=== PATIENT | female | born 2000 | race Caucasian/White ===

== ENCOUNTER 2020-05-17 20:14 | Emergency (ER) | payer BC, OTHER ==
[2020-05-17] MEDS ORDERED: SILVADENE 50 GM TP ONE ×2 (20:26→20:36)
[2020-05-17 20:35] VITALS: O2SAT 100
--- NOTE | 2020-05-17 20:47 | ERPHSYRPT ---
- History of Present Illness Source: patient Exam Limitations: no limitations Patient Subjective Stated Complaint: pt states "I burnt myself at work yesterday with [employer]art grease." Triage Nursing Assessment: pt ambulated into the er; pt is axo x4; c/o burn to rt hand; states 8/10 pain to rt hand; burn measures 5 cm x 7 cm; 2nd degree burn preseent to rt hand; sloughing of skin on dorsal part of hand; area around red; good cap refill; strong radial pulses; good ROM to rt hand; tachycardic; Physician History: Is a healthy 20-year-old female who presents with burn on her right hand. It occurred yesterday at work while she was taking out a jain of [employer] and grease splashed on her right hand. Blistered up pretty quickly. Then 1 small area opened and started draining. Since then has been painful. Tetanus is up-to-date. Patient states she is currently . Timing/Duration: yesterday Quality: painful Severity: mild Location: hands Possible Causes: other (stewart grease) Associated Symptoms: blisters, change in skin texture Allergies/Adverse Reactions: No Known Drug Allergies Allergy (Verified 05/17/20 20:21) Hx Tetanus, Diphtheria Vaccination/Date Given: No Hx Influenza Vaccination/Date Given: No Hx Pneumococcal Vaccination/Date Given: No Travel Risk - International Travel Have you traveled outside of the country in past 3 weeks: No - Coronavirus Screening Are you exhibiting any of the following symptoms?: No Close contact with a COVID-19 positive Pt in past 14-21 Days: No - Review of Systems Constitutional: No Fever, No Chills Eyes: No Symptoms Ears, Nose, & Throat: No Symptoms Respiratory: No Cough, No Dyspnea Cardiac: No Chest Pain, No Edema, No Syncope Abdominal/Gastrointestinal: No Abdominal Pain, No Nausea, No Vomiting, No Diarrhea Genitourinary Symptoms: No Dysuria Musculoskeletal: No Back Pain, No Neck Pain Skin: Rash (Burn) Neurological: No Dizziness, No Focal Weakness, No Sensory Changes Psychological: No Symptoms Endocrine: No Symptoms All Other Systems: Reviewed and Negative - Past Medical History Pertinent Past Medical History: Yes Psycho-Social History: Anxiety, Depression Other Medical History: premature - Past Surgical History Past Surgical History: Yes Other Surgical History: t&a - Social History Smoking Status: Former smoker How long have you smoked: 2 Exposure to second hand smoke: Yes Drug Use: none Patient Lives Alone: No - Female History Hx Now: Yes - Nursing Vital Signs Nursing Vital Signs: Initial Vital Signs Temperature 98.6 F 05/17/20 20:23 Pulse Rate 119 H 05/17/20 20:23 Respiratory Rate 16 05/17/20 20:23 Blood Pressure 120/76 05/17/20 20:23 O2 Sat by Pulse Oximetry 100 05/17/20 20:23 Pain Scale Pain Intensity 8 - Physical Exam General Appearance: no apparent distress, alert Eye Exam: PERRL/EOMI, eyes nml inspection Ears, Nose, Throat Exam: normal ENT inspection, pharynx normal, moist mucous membranes Neck Exam: normal inspection, non-tender, supple, full range of motion Respiratory Exam: normal breath sounds, lungs clear, No respiratory distress Cardiovascular Exam: regular rate/rhythm, normal heart sounds Gastrointestinal/Abdomen Exam: soft, mass, No tenderness Back Exam: normal inspection, normal range of motion, No CVA tenderness, No vertebral tenderness Extremity Exam: normal inspection, normal range of motion (Of right hand.) Neurologic Exam: alert, oriented x 3, cooperative, normal mood/affect, sensation nml, No motor deficits Skin Exam: normal color, warm, dry, other (Dorsum hand. 3 x 5 cm near center of the burn which is second-degree. Large area surrounding it is first-degree. No erythema. Tender to palpation. Small open blister noted proximal to the fourth MCP.) SpO2: 100 - Course Nursing assessment & vital signs reviewed: Yes Ordered Tests: Medication Summary Discontinued Medications Generic Name Dose Route Start Last Admin Trade Name Jt PRN Reason Stop Dose Admin Silver Sulfadiazine 50 gm 05/17/20 20:26 05/17/20 20:37 Silvadene 50 Gm TP 05/17/20 20:27 50 gm STAT ONE Administration Silver Sulfadiazine Confirm 05/17/20 20:36 Silvadene 50 Gm Administered 05/17/20 20:37 Dose 50 gm TP .STK-MED ONE - Progress Progress: improved Progress Note: 05/17/20 20:46 Tetanus up-to-date. Silvadene to area. Given patient is , no further treatment. Referral to [facility] burn unit was discussed. Declined referral at this time. Patient will monitor wound and follow-up with her PCP. This is a workers comp injury. Patient will contact lens manufacturer's Comp. insurance probably. Wound dressing and precautions given. Counseled pt/family regarding: diagnosis, need for follow-up - Departure Departure Disposition: Home Clinical Impression: Burn Condition: Stable Critical Care Time: No Instructions: Skin Damon Additional Instructions: Monitor wound closely. Daily dressing changes with Silvadene. Follow-up with PCP for further care or Worker's Comp. Return to ER if worse. Forms: Work/School Release Form Prescriptions: Silver Sulfadiazine 50 gm [Silvadene 50 gm] 50 gm TP DAILY #1 cream.gm.
[2020-05-17 21:17] VITALS: BP 111/69; PULSE 92
== END 2020-05-17 21:01 | disposition home or self-care (01) ==
LOC: ED 20:14
DX: T23.201A Burn of second degree of right hand, unspecified site, initial encounter (principal); X10.2XXA Contact with fats and cooking oils, initial encounter; Y93.G3 Activity, cooking and baking; Y99.0 Civilian activity done for income or pay; Z33.1 Pregnant state, incidental
CPT/HCPCS: 99283; A9270-GY